=== PATIENT | male | born 1960 | race Caucasian/White ===

== ENCOUNTER 2017-02-20 10:01 | Day surgery (SDC) | payer BC ==
[2017-02-19 15:08] VITALS: BMI 27.5
[2017-02-20] MEDS ORDERED: PROPOFOL 20 ML ONE ×3 (11:25)
[2017-02-20 12:21] VITALS: TEMP 97.5
[2017-02-20 13:21] VITALS: BP 122/68; PULSE 65
--- NOTE | 2017-02-21 14:40 | PATH ---
Surgical Pathology Report Patient Name: JAMEY DRIVER [facility]. Rec. #: [id number] /Age/Gender: 1960 (Age: 56) / M Account: [id number] Location: U-ENDOSCOPY Taken: 02/20/2017 Received: 02/20/2017 Reported: 02/21/2017 Physicians: Uche Andersen D.O. Specimen(s) Received A: BX DESCENDING COLON POLYP B: BX CECAL COLON POLYPS C: BX ANASTOMOSIS AT 30 CM D: BX RECTAL POLYP Clinical History Screening Colon polyp, surgical anastomosis Final Diagnosis A. COLON, DESCENDING, POLYP, POLYPECTOMY: MULTIPLE FRAGMENTS OF TUBULAR ADENOMA B. COLON, CECUM, POLYPS x2, BIOPSY: FRAGMENTS OF TUBULAR ADENOMA (x3). C. ANASTOMOSIS SITE AT 30 CM, BIOPSY: COLONIC MUCOSA WITH SURFACE HYPERPLASTIC CHANGE. NEGATIVE FOR DYSPLASIA/ADENOMA OR CARCINOMA. D. RECTUM, POLYP, BIOPSY: HYPERPLASTIC-TYPE POLYP WITH FEATURES SUGGESTIVE OF SESSILE SERRATED ADENOMA. Electronically Signed Khai Garcia M.D. Gross Description A. Received in formalin, labeled "descending colon polyp" are 4 morris, irregular portions of soft tissue ranging from 0.3-0.4 cm in greatest dimension. The specimens are submitted in toto in one cassette. B. Received in formalin, labeled "biopsy cecal colon polyp" are 2 morris, irregular portions of soft tissue measuring 0.2 and 0.3 cm in greatest dimension. The specimens are submitted in toto in one cassette. C. Received in formalin, labeled "biopsy anastomosis at 30 cm" are 2 morris, irregular portions of soft tissue measuring 0.1 and 0.4 cm in greatest dimension. The specimens are submitted in toto in one cassette. D. Received in formalin, labeled "biopsy rectal polyp" are 2 morris, irregular portions of soft tissue measuring 0.3 and 0.4 cm in greatest dimension. The specimens are submitted in toto in one cassette. 02/20/201702/20/2017
== END 2017-02-20 13:10 | disposition home or self-care (01) ==
LOC: JASU-ENDO 10:01
PROVIDERS: ATTEND Internal Medicine Gastroenterology
PROC: 0DBH8ZX Excision of Cecum, Via Natural or Artificial Opening Endoscopic, Diagnostic (ICD-10-PCS; 2017-02-20)
PROC: 0DBP8ZX Excision of Rectum, Via Natural or Artificial Opening Endoscopic, Diagnostic (ICD-10-PCS; 2017-02-20)
PROC: 0DBG8ZX Excision of Left Large Intestine, Via Natural or Artificial Opening Endoscopic, Diagnostic (ICD-10-PCS; principal; 2017-02-20 11:30)
DX: Z12.11 Encounter for screening for malignant neoplasm of colon (principal); Z85.038 Personal history of other malignant neoplasm of large intestine; K62.1 Rectal polyp; D12.0 Benign neoplasm of cecum; K63.5 Polyp of colon; K64.8 Other hemorrhoids; Z98.0 Intestinal bypass and anastomosis status
CPT/HCPCS: 88305-TC

== ENCOUNTER 2021-07-19 04:45 | Day surgery (SDC) | payer BC, OTHER ==
[2021-07-18 12:12] VITALS: BMI 29.3
[2021-07-19 12:04] VITALS: BP 152/78; PULSE 58; TEMP 98.4
== END 2021-07-19 12:20 | disposition home or self-care (01) ==
LOC: JASU-ENDO 04:45
PROVIDERS: ATTEND Internal Medicine Gastroenterology
PROC: 0DJD8ZZ Inspection of Lower Intestinal Tract, Via Natural or Artificial Opening Endoscopic (ICD-10-PCS; principal; 2021-07-19 10:15)
DX: Z12.11 Encounter for screening for malignant neoplasm of colon (principal); K64.0 First degree hemorrhoids; Z86.010 Personal history of colon polyps; Z85.038 Personal history of other malignant neoplasm of large intestine; Z98.0 Intestinal bypass and anastomosis status
CPT/HCPCS: 82962; C9803; U0003; U0005